=== PATIENT | male | born 1970 | race Caucasian/White ===

== ENCOUNTER 2020-01-14 00:46 | Emergency (ER) | payer OTHER, SELFPAY ==
--- NOTE | ~2020-01-14 | XR_ITS ---
EXAMINATION: XR finger 5th LT min 2V, XR finger 5th LT min 2V DATE: 01/14/2020 01:25 INDICATION: Left fifth digit pain and follow-up post reduction TECHNIQUE: 1. Dorsal palmar and lateral views of the left fifth digit were obtained 2. Dorsal palmar and lateral views of the left fifth digit were obtained post reduction. COMPARISON: None FINDINGS: Initial radiograph demonstrates dorsal dislocation with slight ulnar subluxation at the fifth proxima l interphalangeal joint. No fractures identified. Remaining joint spaces are normal. There is normal alignment of the left fifth digit with normal joint spaces post reduction of the dislocation. No frac tures identified. IMPRESSION: 1. Dorsal dislocation of the left fifth proximal interphalangeal joint with successful reduction to a natomic alignment. No fracture. Reviewed, dictated and finalized at location A. IMPRESSION: 1. Dorsal dislocation of the left fifth proximal interphalangeal joint with suc cessful reduction to anatomic alignment. No fracture.
[2020-01-14 00:50] VITALS: BP 177/136; PULSE 125; RESP 16; TEMP 35.8; O2SAT 98
--- NOTE | 2020-01-14 00:56 | ED_ITS ---
HPI - Extremity Injury (Upper) General Chief Complaint: Extremity Injury, Upper Stated Complaint: possible broken finger Time Seen by Provider: 01/14/20 00:55 History of Present Illness HPI narrative: He tripped over his dog and landed on outstretched left hand. He has pain and deformity to the left fifth finger. Pain is 10/10. He did hit his head. No LOC, nausea, confusion. Related Data Home Medications Medication Instructions Recorded Confirmed buspirone mg 01/14/20 01/14/20 eszopiclone mg 01/14/20 Allergies Allergy/AdvReac Type Severity Reaction Status Date / Time No Known Allergies Allergy Verified 01/14/20 00:52 Review of Systems Review of Systems: All systems reviewed & are unremarkable except as noted in HPI and below Eyes: Eyes: Denies change in vision Exam Const: General: healthy appearing, no acute distress and alert Orientation/consciousness: patient oriented x3 HENMT: Head: normal to inspection Eyes: Pupils: Equal, round and reactive pupils present Skin: General skin exam: normal color Neuro: General: patient oriented x3, moves all extremities and CN's II-XI int act bilaterally Speech: normal speech Extrem: Other: Deformity of left fifth PIP. No wound Course Vital Signs Vital signs: Vital Signs Temperature 35.8 C L 01/14/20 00:50 Pulse Rate 125 H 01/14/20 00:50 Respiratory Rate 16 01/14/20 00:50 Blood Pressure 177/136 H 01/14/20 00:50 Pulse Oximetry 98 01/14/20 00:50 Temperature 35.8 C L 01/14/20 00:50 Pulse Rate 125 H 01/14/20 00:50 Respiratory Rate 16 01/14/20 00:50 Blood Pressure 177/136 H 01/14/20 00:50 Pulse Oximetry 98 01/14/20 00:50 Procedures Nerve Block Nerve Block 1: Local Anesthetic: lidocaine 1% Amount of anesthesia used (mL): 3 Side: left Nerve Blocks: digital Procedure Successful: Yes Patient Tolerated Procedure: well Complications: none Orthopedic Joint Reduction Joint #1: Side: left Joint Reduction Location: finger Pre-Procedure Neuro Vascular Exam: normal Technique used: direct manipulation Post-reduction neuro exam: intact Post-reduction vascular: intact Post Reduction X-Ray Obtained: Yes Post Reduction X-Ray Results: reduced Splint Applied: Yes Patient Tolerated Procedure: well Discharge Plan Discharge Clinical Impression: Closed dislocation finger, proximal interphalangeal joint, traumatic Patient Disposition: Home, Self-Care Condition: Stable Instructions: Finger Dislocation (ED) Prescriptions: No Action buspirone 10 mg tablet RF: 0 eszopiclone 2 mg tablet RF: 0 Follow-up/Referrals: Shaquille,Nando Bee MD [Primary Care Provider] - Discharge Date/Time: 01/14/20 02:02
[2020-01-14] MEDS: LIDOCAINE HCL 1% LOCAL INJ 20 ML VIAL 4 ML INFILTRATE (01:06)
== END 2020-01-14 02:02 | disposition home or self-care (01) ==
PROVIDERS: Emergency Provider Emergency Medicine; PCP Family Medicine
DX: S63.287A Dislocation of proximal interphalangeal joint of left little finger, initial encounter (principal); W01.0XXA Fall on same level from slipping, tripping and stumbling without subsequent striking against object, initial encounter
CPT/HCPCS: 26770; 73140; 99285

== ENCOUNTER 2020-03-21 22:26 | Emergency (ER) | payer SELFPAY ==
--- NOTE | 2020-03-21 22:28 | ED.EXTPRO ---
HPI - Extremity Problem General Chief complaint: Wound/Laceration Stated complaint: finger wound Time Seen by Provider: 03/21/20 22:27 Source: patient Mode of arrival: ambulatory Limitations: no limitations History of Present Illness HPI Narrative: Patient is a 49-year-old male who presented for evaluation left thumb laceration. Patient states he was setting a coyote trap when the spring released, flying backwards and cutting off the tip of his thumb. Patient denies any numbness. He reports mild, burning pain. No pain with movement. No bony pain. Patient is up-to-date on his tetanus. No active bleeding. Related Data Home Medications Medication Instructions Recorded Confirmed buspirone mg 01/14/20 01/14/20 eszopiclone mg 01/14/20 Allergies Allergy/AdvReac Type Severity Reaction Status Date / Time No Known Allergies Allergy Verified 03/21/20 22:37 Review of Systems Review of Systems: Narrative: CONSTITUTIONAL: Denies fever RESPIRATORY: Denies cough or dyspnea. GASTROINTESTINAL: Denies abdominal pain SKIN: Reports left thumb laceration MUSCULOSKELETAL: Denies back pain NEUROLOGIC: Denies headache [facility] Past Medical History Medical History (Updated 03/21/20 @ 22:45 by Mariluz Whittaker MD) Closed dislocation finger, proximal interphalangeal joint, traumatic Rotator cuff injury Social History Social History (Updated 03/21/20 @ 22:43 by Mariluz Whittaker MD) Substance use: never Living arrangements: with family Gender identity (if verbalized by the patient): Male Exam Narrative: Exam Narrative: GENERAL: Awake, alert, conversant HEAD: Normocephalic, atraumatic. EYES: PERRLA and EOMI. ENT: Nares clear, no rhinorrhea or epistaxis. Mucous membranes moist. NECK: Supple. CHEST: No respiratory distress, breathing even and non labored HEART: Regular rate, sinus rhythm ABDOMEN:Non distended, non tender EXTREMITIES: Normal range of motion. No edema. Radial pulse 2+. Intact sensation median, ulnar radial nerve distribution. Capillary refill less than 3 seconds. No pain, flexion present at the DIP and PIP without limitation. SKIN: Warm, dry, no rash. Left superficial thumb pad a avulsion. No active bleeding. No bone exposed. No nail avulsion. NEURO:No focal deficits. Alert and oriented x3 Course Vital Signs Vital signs: Vital Signs Temperature 36.4 C L 03/21/20 22:34 Pulse Rate 104 H 03/21/20 22:34 Respiratory Rate 20 03/21/20 22:34 Blood Pressure 112/83 03/21/20 22:34 Pulse Oximetry 98 03/21/20 22:34 Temperature 36.4 C L 03/21/20 22:34 Pulse Rate 104 H 03/21/20 22:34 Respiratory Rate 20 03/21/20 22:34 Blood Pressure 112/83 03/21/20 22:34 Pulse Oximetry 98 03/21/20 22:34 MDM - Extremity (Nontraumatic) MDM Narrative Medical decision making narrative: Patient was superficial left thumb pad evulsion. There is no tissue present to suture close. This is very superficial. There is no bony exposure. Patient wound irrigated, applied nonstick dressing, given wound care instructions. Patient advised to limit heavy lifting as to promote healing. Advised to apply Vaseline and nonstick gauze. There is nothing to be sutured closed or glued at this point. This will have to heal via secondary intention over time. Patient is neurovascularly intact. He is then discharged home. Discharge Plan Discharge Clinical Impression: Avulsion of skin Patient Disposition: Home, Self-Care Condition: Stable Instructions: Skin Avulsion (ED) Additional Instructions: You have a thumb pad avulsion. This will heal over time. There is no skin present to suture close. Please keep your wound clean and dry. Please do not soak it in any water. You may wash with antibacterial soap and pat it to dry. Please do not scrub the wound. Signs of infection including redness, purulent drainage from the site, worsening pain. If you feel any of these are present, please return to
[2020-03-21 22:34] VITALS: BP 112/83; PULSE 104; RESP 20; TEMP 36.4; O2SAT 98
[2020-03-21] MEDS: ONDANSETRON HCL ODT 4 MG TABLET PO (23:00)
--- NOTE | 2020-03-21 23:12 | PC.NURSE ---
Wound cleaned with wound cleanser and rinsed with normal saline. Triple antibiotic ointment applied followed by nonstick dressing which was secured by roll gauze and coban. Patient tolerated well. Education and instructions for wound cleansing and bandaging were provided to this patient and his . Neither had any questions for me at time of discharge.
[2020-03-21 23:13] VITALS: BP 121/89; PULSE 99; RESP 22; TEMP 36.7; O2SAT 97
== END 2020-03-21 23:17 | disposition home or self-care (01) ==
PROVIDERS: Emergency Provider Emergency Medicine; PCP Family Medicine
DX: S61.012A Laceration without foreign body of left thumb without damage to nail, initial encounter (principal); W20.8XXA Other cause of strike by thrown, projected or falling object, initial encounter
CPT/HCPCS: 99283; A9270

== ENCOUNTER 2021-04-17 12:46 | Outpatient (CLI) | payer BC, SELFPAY ==
--- NOTE | ~2021-04-17 | XR_ITS ---
EXAMINATION: XR shoulder RT min 2V INDICATION: Acute right shoulder pain TECHNIQUE: Four views of the right shoulder are obtained on five radiographs. COMPARISON: 08/19/2016 FINDINGS: Normal alignment. No acute fracture. There is a questionable old Hill-Sachs deformity invol ving the superolateral aspect of the humeral head. There is mild osteoarthritis of the glenohumeral j oint and acromioclavicular joint. Soft tissues are unremarkable. IMPRESSION: 1. No acute osseous abnormality. Reviewed, dictated and finalized at location A. T SERVICES ASSISTANT
== END 2021-04-17 12:47 | disposition home or self-care (01) ==
PROVIDERS: PCP Family Medicine
DX: M25.511 Pain in right shoulder (principal)
CPT/HCPCS: 73030

== ENCOUNTER 2021-05-20 12:39 | Outpatient (CLI) | payer OTHER, SELFPAY ==
--- NOTE | ~2021-05-20 | MR_ITS ---
EXAMINATION: MR shoulder RT w con DATE: 05/20/2021 14:17 INDICATION: Right shoulder pain. Abductor weakness. TECHNIQUE: Magnetic resonance imaging (MRI) of the right shoulder was performed without intravenous c ontrast after intra-articular injection of contrast (MR arthrogram). Sequences included axial T1-weig hted FS FSE and T2-weighted FS FSE, coronal-oblique T1-weighted FS FSE and T2-weighted FS FSE, and sa gittal-oblique T1-weighted FSE and T2-weighed FS FSE. The patient could not tolerate ABER positioning . COMPARISON: Right shoulder radiographs 04/17/2021 FINDINGS: Coracoacromial arch: The acromion undersurface is curved in morphology (type II). There is mild osteoarthritis of acromioc lavicular joint. Rotator cuff: There are surgical changes of the rotator cuff. There is severe supraspinatus and infraspinatus tendi nopathy. There is a full-thickness tear of anterior supraspinatus tendon measuring 5 mm anterior to p osterior by 25 mm proximal to distal. There is an articular-sided and bursal-sided, partial-thickness tear of supraspinatus and infraspinatus tendons measuring 4.5 cm proximal to distal. Teres minor ten don is normal. There is moderate subscapularis tendinopathy. There is mild fatty atrophy of supraspin atus and infraspinatus muscle bellies. Biceps tendon and glenoid labrum: Biceps tendon is in bicipital groove. There is mild intra-articular biceps tendinopathy. There is a t ear of posterior superior labrum from 9:00 to 12:00 (SLAP tear). Fluid: The glenohumeral joint is well distended by contrast. There are small loose bodies in the glenohumera l joint. There is contrast in subacromial/subdeltoid bursa. Bones/cartilage: There is cartilage surface irregularity of glenoid and humeral head. IMPRESSION: 1. Severe rotator cuff tendinopathy with full-thickness tear. 2. Mild glenohumeral joint chondrosis. SLAP tear. 3. Mild intra-articular biceps tendinopathy. 4. Mild acromioclavicular joint osteoarthritis. Reviewed, dictated and finalized at location A. ER PLANT OPERATOR
--- NOTE | ~2021-05-20 | XR_ITS ---
EXAMINATION: XR fl inj shoulder RT - MR/CT DATE: 05/20/2021 13:43 INDICATION: Right shoulder pain. TECHNIQUE: A time-out was performed to verify the patient's name, date of , and procedure to b e performed. The procedure including the risks, benefits, and alternatives was discussed with the pat ient. Risks discussed included bleeding and infection. The patient understood the risks and agreed to proceed. The skin overlying the right glenohumeral joint was prepped and draped in usual sterile fas hion. Anesthetic was administered with 1% lidocaine subcutaneously. A 22 G needle was advanced unde r fluoroscopic guidance into the joint. Subsequently, injectate consisting of 12 mL of 1:200 Multiha nce, 1:4 1% lidocaine, and 1:4 Omnipaque 240 was instilled. The needle was removed and the entry sit e was cleaned and dressed. There were no immediate complications. Fluoroscopy exposure time was 0.1 minutes. The total number of images was 3. FINDINGS: Real-time fluoroscopy demonstrates the needle and contrast in the right glenohumeral joint. IMPRESSION: 1. Successful fluoroscopy guided right glenohumeral joint injection of contrast for subsequent MR art hrography. Reviewed, dictated and finalized at location A. FACTURED BUILDINGS SUPERVISOR IMPRESSION: 1. Successful fluoroscopy guided right glenohumeral joint injection of contrast for subsequent MR arthrography.
== END 2021-05-20 12:40 | disposition home or self-care (01) ==
LOC: ANHIMG 12:44
PROVIDERS: PCP Family Medicine; Visit Provider Orthopaedic Surgery
DX: M75.101 Unspecified rotator cuff tear or rupture of right shoulder, not specified as traumatic (principal); S43.431A Superior glenoid labrum lesion of right shoulder, initial encounter; M19.011 Primary osteoarthritis, right shoulder
CPT/HCPCS: 23350; 73222; 77002; A9577; Q9966